=== PATIENT | female | born 1995 | race Two or more races ===

== ENCOUNTER 2022-07-04 17:29 | Emergency (ER) | payer OTHER ==
[~2022-07-04] VITALS: Ht 165.1 cm; Wt 47.6 kg
[2022-07-04] MEDS ORDERED: RESTORIL7.5 MG (17:45)
[2022-07-04] MEDS ORDERED: ZOLOFT25 MG (17:45)
[2022-07-04] MEDS ORDERED: KEPPRA500 MG PO (20:38)
== END 2022-07-04 20:58 | disposition home or self-care (01) ==
LOC: ER 17:29
DX: G40.909 Epilepsy, unspecified, not intractable, without status epilepticus (principal)

== ENCOUNTER 2022-10-15 09:34 | Emergency (ER) | payer OTHER ==
[~2022-10-15] VITALS: Ht 165.1 cm; Wt 49.9 kg
[~2022-10-15 09:34] MED LIST: KEPPRA500 MG PO; RESTORIL7.5 MG; ZOLOFT25 MG
== END 2022-10-15 17:49 | disposition home or self-care (01) ==
LOC: ER 09:34
DX: R10.2 Pelvic and perineal pain (principal)